=== PATIENT | male | born 1955 | race Caucasian/White ===

== ENCOUNTER 2017-02-16 16:41 | Inpatient (IN) | payer OTHER ==
--- NOTE | ~2017-02-16 | CN ---
Consultation Report [facility] [address] [facility] [place]. [address] NAME: KINDRA DUKES : 51 STATUS : ADM IN PAT#: [id number] AGE: 61 ADM/REG DATE : 02/16/17 MR#: [id number] REPORT SERV DATE: 02/21/17 DICTATED BY: LYLE HUITRON DATE: 02/20/17 REPORT STATUS : Draft TRANSCRIBED BY: MODL DATE: 02/20/17 HEMATOLOGY ONCOLOGY INITIAL CONSULTATION DATE OF CONSULTATION: 02/20/2017 Consult regarding malignant pleural effusion. CONSULTING SERVICE: Pulmonary by Juaquin young PA-C. CHIEF COMPLAINT: Shortness of breath. HISTORY OF PRESENT ILLNESS: Mr. Dukes is a pleasant 61-year-old white gentleman with past medical history of coronary artery disease, status post SD and psoriasis, who presented to [facility] Emergency room for shortness of breath. The shortness of breath started approximately one week ago and has progressively worsened over this period of time. He had a chest x-ray performed that showed a left-sided pleural effusion. A CTA of the chest was then performed showing no evidence of PE with a large left pleural effusion with compressive atelectasis in the entire left lower lobe with no visible central obstructing left lung mass or endobronchial lesion. No lymphadenopathy or distant metastases identified. He had a thoracentesis performed removing 1.4 L of pleural fluid. The fluid was clearly exudative consistent with a malignant pleural effusion. The prelim pathology was metastatic adenocarcinoma of the lung. He had a CT abdomen and pelvis performed showing aortic atherosclerosis without any evidence of malignancy below the diaphragm. He had a PleurX catheter placed late this evening and Oncology was consulted for his newly diagnosed lung cancer. Currently, Mr. Dukes is breathing better, but does still have some shortness of breath. He is experiencing left-sided pleuritic chest pain after his PleurX catheter placement. He denies any chest pain prior to his hospitalization. He denies cough, fevers, anorexia, weight loss, night sweats, headaches, or vision changes. His psoriasis is minimal with a few lesions in bilateral lower extremities, but is not on any therapy and it is currently stable. He has history of heart disease, but denies any symptoms to suggest unstable angina. PAST MEDICAL HISTORY: 1. Coronary artery disease, status post SD in 12/2008. 2. Psoriasis. 3. Hyperlipidemia. PAST SURGICAL HISTORY: L4-L5 spinal fusion. FAMILY HISTORY: The patient's mother and father both from lung cancer. SOCIAL HISTORY: The patient has been to his for 43 years. He is currently retired. He smoked a pack a day for approximately 40 years quitting approximately three Consultation Report [place] [address] [place]. [address] NAME: KINDRA DUKES : 51 STATUS : ADM IN [facility]#: [id number] AGE: 61 ADM/REG DATE : 02/16/17 MR#: [id number] REPORT SERV DATE: 02/21/17 DICTATED BY: LYLE HUITRON DATE: 02/20/17 REPORT STATUS : Draft TRANSCRIBED BY: DAGOBERTO DATE: 02/20/17 years ago. He drinks rare alcohol and denies illicit drug use. ALLERGIES: HAS AN ALLERGY TO PROCAINE. MEDICATIONS: Medications were reviewed from [employer]. REVIEW OF SYSTEMS: A comprehensive review of systems was performed and was negative except for previously mentioned in the HPI with pertinent positives being shortness of breath and left-sided pleuritic chest pain. PHYSICAL EXAMINATION: VITAL SIGNS: Temperature 97.3, blood pressure 124/72, pulse 102, respirations 16, pulse ox 95% on 2 L nasal cannula. GENERAL: A pleasant, well-developed, well-nourished white gentleman in no acute distress. HEENT: Pupils equal, round, and reactive to light. Extraocular movements were intact. Conjunctivae and lids normal. Sclerae anicteric. Moist mucous membranes. Oropharynx clear without exudate, masses, mucositis, or thrush. NECK: Supple. No JVD. Trachea midline. LYMPHATICS: No cervical, supraclavicular, or axillary lymphadenopathy. CHEST: Normal respiratory effort. Decreased breath sounds bilaterally, but decreased effort due to pleuritic chest pain. PleurX catheter in the left chest that has a bandage covering the drain. No crackles or wheezes appreciated. CARDIOVASCULAR: Regular rate and rhythm. No murmurs, rubs, or gallops. ABDOMEN: Soft, nontender, nondistended. Positive bowel sounds. No palpable hepatosplenomegaly. EXTREMITIES: No clubbing, cyanosis, or edema. SKIN: Warm, dry, intact. No rashes or ecchymoses visualized. No palpable nodules. NEUROLOGIC: Awake, alert, oriented. Sensation intact. Strength intact. No focal deficits. PSYCHIATRIC: Awake, alert, and oriented. Appropriate mood and insight. Verbalized understanding of our conversation. LABORATORY DATA: BMP showing a BUN of 19, creatinine of 0.68. CBC showing a white blood cell count 9100, hemoglobin 12.1 g/dL, hematocrit 36.4%, platelets 263,000. ASSESSMENT AND PLAN: Mr. Dukes is a 61-year-old white gentleman with history of psoriasis and coronary artery disease, who presented for shortness of breath. He was found to have a large malignant pleural effusion prompting consultation. 1. Lung cancer: I have reviewed Mr. Dukes's records including notes, laboratory, imaging reports, and pathology reports. I personally viewed his CT images, which shows a large pleural effusion without any other obvious evidence of disease. Prelim pathology shows adenocarcinoma in the left pleural fluid, but are still awaiting final pathology. He has stage IV disease based on his pleural effusion, but still needs completion staging studies including MRI of the brain and PET scan. Treatment can be targeted therapy versus immunotherapy versus chemotherapy. We will send genetic studies including EGFR, Consultation Report [address] [place]. [address] NAME: KINDRA DUKES : 51 STATUS : ADM IN [facility]#: [id number] AGE: 61 ADM/REG DATE : 02/16/17 MR#: [id number] REPORT SERV DATE: 02/21/17 DICTATED BY: LYLE HUITRON DATE: 02/20/17 REPORT STATUS : Draft TRANSCRIBED BY: MODL DATE: 02/20/17 alk, ROS, and PD L1. We will have him follow up in clinic in seven to ten days to follow up on his scans and pathology. We will finalize treatment at that time. 2. Malignant pleural effusion: Status post PleurX catheter placement today. We will drain three times weekly at the outset. 3. Pain: Related to lung reexpansion. Pain medications per the hospitalist. I appreciate the consult and allowing me to take part in Mr. Dukes's care. ROBERT/DAGOBERTO Lyle Huitron MD / [id number] CC: MD Bowen Hinson M.D.
--- NOTE | ~2017-02-16 | EGD ---
EGD REPORT [facility] [address] [address] NAME: KINDRA DUKES : 51 STATUS : ADM IN PAT#: [id number] AGE: 61 ADM/REG DATE : 02/16/17 MR#: [id number] REPORT SERV DATE: 02/20/17 DICTATED BY: EBONY RAMIREZ DATE: 02/20/17 REPORT STATUS : Draft TRANSCRIBED BY: [facility] DATE: 02/20/17 Pulmonology Patient Name: Kindra Dukes Procedure Date: 02/20/2017 5:36 PM Date of : 1955 Attending MD: AGNES RAMIREZ MD Procedure Date No Time: 02/20/2017 Procedure: Indwelling Tunnelled Cuffed Pleural Catheter Placement Indications: MPE Providers: AGNES RAMIREZ MD Referring MD: AGNES RAMIREZ MD Medicines: Intradermal lidocaine 2% with epinephrine 1:100,000 10 mls. See anesthesia record Complications: No immediate complications Procedure: Pre-Anesthesia Assessment: - A History and Physical has been performed. Patient meds and allergies have been reviewed. The risks and benefits of the procedure and the sedation options and risks were discussed with the patient. All questions were answered and informed consent was obtained. Patient identification and proposed procedure were verified prior to the procedure by the physician and the nurse in the pre-procedure area in the procedure room. Mental Status Examination: normal. CV Examination: normal and RRR, no murmurs, no S3 or S4. ASA Grade Assessment: IV - A patient with severe systemic disease that is a constant threat to life. After reviewing the risks and benefits, the patient was deemed in satisfactory condition to undergo the procedure. The anesthesia plan was to use monitored anesthesia care (MAC). Immediately prior to administration of medications, the patient was re-assessed for adequacy to receive sedatives. The heart rate, respiratory rate, oxygen saturations, blood pressure, adequacy of pulmonary ventilation, and response to care were monitored throughout the procedure. The physical status of the patient was re-assessed after the procedure. Findings: After consent was obtained, a time out was performed. The patient was placed in the right lateral decubitus position with the ipsilateral arm above the patient's head. The patient was sedated by anesthesia and ultrasound survey was performed with identification of pleural fluid and surrounding structures including the diaphragm and lung tissue. Ultrasound image interpretation: The depth to the chest wall is approximately 2 cms. The depth of the pocket is approximately 9 cms. EGD REPORT [address] [address] NAME: KINDRA DUKES : 51 STATUS : ADM IN [facility]#: [id number] AGE: 61 ADM/REG DATE : 02/16/17 MR#: [id number] REPORT SERV DATE: 02/20/17 DICTATED BY: EBONY RAMIREZ DATE: 02/20/17 REPORT STATUS : Draft TRANSCRIBED BY: [employer] DATE: 02/20/17 Ultrasound images were permanently documented. The site of entry was marked using ultrasound guidance. After donning cap, mask, sterile gown and gloves, the patient was prepped with chlorhexadine and drapped. 10 ccs of 2% lidocaine with epinephrine 1:100,000 was used to numb the region. A finder needle was then used to locate fluid with aspiration of serosanguinous fluid. An angiocath sheath was inserted followed by guidewire placement. A small incision was performed at insertion site of the guide wire to expose the subcutaneous tissue. Then an additional 20 ccs of 2% lidocaine with epinephrine was used to numb the subcutanous tract and second incision site. A similar second incision was made approximately 5 cm below the initial incision. The pleural catheter was tunnelled in the usual manner. The trocar was inserted over the wire and the pleural catheter placed into pleural space. 2000 ccs of serosanguinous fluid was drained. The catheter was secured using 3.0 silk and a tegaderm dressing was applied. Impression: 2000 ccs of serosanguinous fluid was drained. Left pleurX placement Recommendation: 1. Post-procedure stat portable chest x-ray 2. Home health consultation 3. Case management consultation for discharge planning 4. [facility] Lung nurse navigator consultation 5. Follow up with me in 10 to 14 days to remove stitches and inspect site Attending Participation: I personally performed the entire procedure. AGNES RAMIREZ MD 02/20/2017 5:38 PM This report has been signed electronically. Number of Addenda: 0 Note Initiated On: 02/20/2017 5:36 PM [address] [place] [address]
--- NOTE | ~2017-02-16 | CN ---
Consultation Report [facility] [address] [place]. [address] NAME: KINDRA DUKES : 51 STATUS : ADM IN PAT#: [id number] AGE: 61 ADM/REG DATE : 02/16/17 MR#: [id number] REPORT SERV DATE: 02/18/17 DICTATED BY: JUAQUIN GARCIA DATE: 02/18/17 REPORT STATUS : Draft TRANSCRIBED BY: MODL DATE: 02/18/17 CONSULTATION DATE OF CONSULTATION: 02/18/2017 CHIEF COMPLAINT: Shortness of breath in a patient with a moderate to large left-sided pleural effusion. HISTORY OF PRESENT ILLNESS: Mr. Kindra Dukes is a very pleasant 61-year-old white male with a past medical history significant for previous myocardial infarction, coronary artery stenting, previous tobacco abuse, who presents to [facility]'s Emergency Room with complaints of worsening shortness of breath. It should be noted that Mr. Dukes is not been hospitalized recently and is usually in quite good health. Mr. 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 He usually requires supplemental oxygen. He is on no pulmonary medications. The patient quit smoking approximately three years ago, prior to this time, he smoked approximately a pack a day for 30 years. He describes his exercise tolerance prior to this recent illness as being excellent. Mr. 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 This became progressively worse and culminated in his presentation to [facility]'s Emergency Room. Upon arrival, he was found to be afebrile and normotensive. He did have an oxygen saturation of 88% on room air. Initial blood work revealed a white blood cell count of 11,200. An arterial blood gas was obtained, which demonstrated pH 7.47, PaCO2 of 33, PaO2 57, and a bicarb of 22.9. He did eventually undergo a chest x-ray, which showed a large left pleural effusion. For the aforementioned reasons, he has been referred to the Pulmonary Service for further assessment. Mr. Dukes's main pulmonary complaint today is shortness of breath. This is worse on exertion and relieved by rest. He does have some left-sided pleuritic pain as well. He has had no hemoptysis. He has had no vocal changes. He has had pneumonia in the past. He denies any wheezing today. The patient does have known coronary artery disease and has had a heart attack in the past. He is followed by Dr. Rasmussen for his cardiac needs. He currently denies any murmurs, angina, or palpitations. He denies any orthopnea, paroxysmal nocturnal dyspnea, or edema. In regard to constitutional symptoms, he currently denies fever, chills, nausea, vomiting, chest pain, abdominal pain, or edema. PAST MEDICAL HISTORY: 1. Myocardial infarction. 2. Psoriasis. Consultation Report [address] [place]. [address] NAME: KINDRA DUKES : 51 STATUS : ADM IN [facility]#: [id number] AGE: 61 ADM/REG DATE : 02/16/17 MR#: [id number] REPORT SERV DATE: 02/18/17 DICTATED BY: JUAQUIN GARCIA DATE: 02/18/17 REPORT STATUS : Draft TRANSCRIBED BY: DAGOBERTO DATE: 02/18/17 3. Past tobacco abuse. PAST SURGICAL HISTORY: Back surgery. FAMILY HISTORY: The patient states his mother and father both had COPD as well as diagnosis of lung cancer. SOCIAL HISTORY: The patient is with his of 43 years, currently at bedside. They have children who are in good health. He has worked a variety of jobs in the past, more recently with a [employer]. He denies any known exposures to dust, silica, or asbestos. TOBACCO/ALCOHOL: As previously mentioned, the patient quit smoking approximately three years ago, prior to this time, he smoked a pack a day for a period of 30 years. He denies any recent alcohol or illicit drug use. MEDICATIONS: Aspirin 81 mg, atorvastatin 40 mg, Avodart 0.5 mg, Zetia 10 mg, lisinopril 5 mg, meloxicam 15 mg, and tamsulosin 0.4 mg. ALLERGIES: THE PATIENT HAS KNOWN ALLERGY TO PROCAINE. OF NOTE, THE PATIENT HAS HAD LIDOCAINE IN THE PAST AND HAS HAD NO ISSUES WITH THAT MEDICATION. REVIEW OF SYSTEMS: A complete review of systems was performed with pertinent positives and negatives contained within the body of the HPI. PHYSICAL EXAMINATION: VITAL SIGNS: Blood pressure is 106/66, heart rate 74, T-max is 98.2, respiratory rate is 20, and SpO2 is 94% on 2 L. GENERAL: Mr. Kindra Dukes is a very pleasant 61-year-old white male who is not currently exhibiting any signs of acute distress. SKIN: Skin with appropriate texture and turgor. No rashes, lesions, or ulcers. HEENT: Head, skull is normocephalic, atraumatic. No masses or lesions. Eyes, sclerae anicteric. Extraocular movements are intact. Ears, auricles and tragus without pain to palpation. Nose, bilateral nasal patency. Throat, the patient has complete dentition in good repair. NECK: Neck is supple. No tracheal deviation. THORAX/LUNGS: Thorax is symmetric with equal chest rise. Very diminished breath sounds on the left. Dullness to percussion on the left lower lung field. CARDIOVASCULAR: Regular rate and rhythm. ABDOMEN: Soft. Nondistended, nontender. PERIPHERAL VASCULAR: No edema or varicosities. MUSCULOSKELETAL: Full AROM and PROM in all joints. NEUROLOGIC: Cranial nerves 2 through 12 grossly intact. PSYCHIATRIC: The patient demonstrates good judgment and insight. The patient is alert and Consultation Report [address] [address] NAME: KINDRA DUKES : 51 STATUS : ADM IN [facility]#: [id number] AGE: 61 ADM/REG DATE : 02/16/17 MR#: [id number] REPORT SERV DATE: 02/18/17 DICTATED BY: JUAQUIN GARCIA DATE: 02/18/17 REPORT STATUS : Draft TRANSCRIBED BY: [facility] DATE: 02/18/17 oriented x3. ACCESSORY DATA: Reveals a white blood cell count of 9900, hemoglobin and hematocrit are 13.1 and 40.6, and platelets are 233. PT and INR 15.6 and 1.3. Procalcitonin is negative at 0.05. BNP is slightly elevated at 109.2. Chest x-ray reveals a large left pleural effusion. IMPRESSION: 1. Acute hypoxemic respiratory failure. 2. Rbjyapjw-sg-fjdse left-sided pleural effusion. PLAN: 1. At this time, we will attempt to wean the patient's oxygen as appropriate. 2. In regard to the patient's large left pleural effusion, we will perform a diagnostic as well as a therapeutic thoracentesis at the bedside. The fluid will be sent for the appropriate studies. There is a previously ordered CT of the chest, which we will follow with close attention to better evaluate this after evacuation of the pleural fluid. The aforementioned impression and plan has been discussed with Dr. Merritt, who will follow further recommendations. We thank you for this consult and look forward to participating in the care of. Kindra Dukes. GBS/MODL Juaquin Garcia PA-C / [id number] CC: MD Bowen Hinson M.D.
--- NOTE | ~2017-02-16 | OP ---
Record Of Operation [address] [place]. [address] NAME: KINDRA GUAJARDO : 51 STATUS : ADM IN PAT#: [id number] AGE: 61 ADM/REG DATE : 02/16/17 MR#: [id number] REPORT SERV DATE: 02/18/17 DICTATED BY: JUAQUIN GARCIA DATE: 02/18/17 REPORT STATUS : Draft TRANSCRIBED BY: MODL DATE: 02/18/17 DATE OF PROCEDURE: 02/18/2017 TIME: 1400. PROCEDURE: Ultrasound guided left-sided Thoracentesis INDICATION: Dsbprioa-iy-iuzmc left-sided pleural effusion. PROCEDURE [employer]: Jamar Garcia PA-C. CONSENT: Consent was obtained from the patient prior to the procedure. Diagnostic and therapeutic indications for thoracentesis were discussed as well as risks including life- threatening bleeding, pneumothorax, and even the possible necessity of chest tube placement. Benefits and alternatives were explained at length. Prior to the procedure, imaging studies were reviewed with Dr. Merritt who agreed with the indication to proceed with thoracentesis. Dr. Merritt was present in the room. PROCEDURE SUMMARY: A time out was performed verifying correct patient, procedure, site, and positioning. The patient's left chest was prepped and draped in a sterile manner using chlorhexidine scrub after the appropriate level was percussed and confirmed by ultrasound. U/S images were obtained and placed within the chart. 2% lidocaine with epinephrine was then used to anesthetize the region. A finder needle was then used to aspirate dark serosanguinous pleural fluid. A 10-blade scalpel was then used to make a small incision. The thoracentesis catheter was then threaded into the pleural space without difficulty. The patient had 1400 mL of dark serosanguinous fluid removed. The chest was then re-ultrasound in a sterile fashion which demonstrated some residual fluid remaining. No immediate complications were noted during the procedure. The fluid will be sent for several studies. ESTIMATED BLOOD LOSS: Minimal Please note that the patient is scheduled for a CT of the chest rather than a postprocedural chest x-ray. GBS/MODL Juaquin Garcia PA-C / [id number] CC: Odalis Haque MD Record Of Operation [place] [address] [place]. [address] NAME: KINDRA GUAJARDO : 51 STATUS : ADM IN PAT#: [id number] AGE: 61 ADM/REG DATE : 02/16/17 MR#: [id number] REPORT SERV DATE: 02/18/17 DICTATED BY: JUAQUIN GARCIA DATE: 02/18/17 REPORT STATUS : Draft TRANSCRIBED BY: MODL DATE: 02/18/17 Bowen Larson M.D.
--- NOTE | ~2017-02-16 | DS ---
Discharge Summary [facility] [place] [id number] [place]. [address] NAME: KINDRA GUAJARDO : 51 STATUS : DIS IN PAT#: [id number] AGE: 61 ADM/REG DATE : 02/16/17 MR#: [id number] REPORT SERV DATE: 02/22/17 DICTATED BY: KHUSHI MANUEL DATE: 02/21/17 REPORT STATUS : Draft TRANSCRIBED BY: DAGOBERTO DATE: 02/21/17 ADMISSION DATE: 02/16/2017 DISCHARGE DATE: 02/21/2017 DISCHARGE DIAGNOSES: 1. Malignant pleural effusion, probable non-small cell lung cancer, final pathology adenocarcinoma. 2. Acute hypoxic respiratory failure secondary to above. 3. Acute on chronic systolic/diastolic heart failure contributing to respiratory failure. 4. Coronary artery disease. 5. BPH. 6. Psoriasis. DISCHARGE MEDICATIONS: Include: 1. Flomax 0.4 mg p.o. b.i.d. 2. Spiriva 18 mcg capsule inhaled daily. 3. [place] 5/325 p.o. q.6 hours p.r.n. 4. Lasix 20 mg p.o. daily. 5. Nitroglycerin 0.4 sublingual p.r.n. chest pain. 6. Aspirin 81 mg p.o. daily. 7. Mobic 15 mg daily p.r.n. 8. Lipitor 40 mg p.o. at bedtime. 9. Avodart 0.5 mg daily. 10.Zetia 10 mg p.o. at bedtime. 11.Prinivil 5 mg at bedtime. DISPOSITION AND FOLLOWUP: Patient medically stable for discharge. Followup with Pulmonary and Oncology as directed. Patient to have PET scan and MRI of the head done as an outpatient. Follow with primary care physician in one week. HISTORY AND PHYSICAL: Per initial assessment. DISCHARGE VITALS: Temperature 96.9, heart rate 89, blood pressure 115/74, respiratory rate 18, and O2 saturation 94 on 2 L. DISCHARGE LABS: WBC 9.1, hemoglobin 12.1, hematocrit 36.4, and platelets 263. Sodium 139, potassium 4.5, chloride 103, bicarb 28, BUN 17, creatinine 0.64, and calcium 8.6. HOSPITAL COURSE: This is a 61-year-old man with past medical history of coronary artery disease who comes in due to shortness of breath. The patient was found to have a large pleural effusion and hypoxic respiratory failure secondary to above. Pulmonary was consulted, further details per Pulmonary note. Thoracentesis was done with 1.4 L out. Studies were reviewed, pathology adenocarcinoma, probable non-small cell lung cancer. CT of the abdomen and pelvis was done without any acute process identified. Echo was done which showed left ventricular function moderately impaired estimated at 40% to 45%, mild left ventricular diastolic dysfunction, right ventricular systolic function intact, no Discharge Summary [address] [address] NAME: KINDRA GUAJARDO : 51 STATUS : DIS IN PAT#: [id number] AGE: 61 ADM/REG DATE : 02/16/17 MR#: [id number] REPORT SERV DATE: 02/22/17 DICTATED BY: KHUSHI MANUEL DATE: 02/21/17 REPORT STATUS : Draft TRANSCRIBED BY: MODL DATE: 02/21/17 significant valvular dysfunction. No pleural effusion noted per echo. No pericardial effusion. The patient was placed on IV diuretics. Will be discharged on Lasix 20 mg p.o. daily. Discharged the patient on oxygen to maintain saturation above 89%. Question of COPD undiagnosed, patient will be placed on Spiriva at discharge by Pulmonary. The patient also had done without any complications. Patient medically stable for discharge. Oncology did see patient and will follow as directed. We will have MRI and PET scan done as an outpatient. Follow up with primary care physician in one week. Total time for discharge planning, 35 minutes. DICTATED BY: MD ELLIOT Hinson/DAGOBERTO Odalis Haque MD / [id number] CC: MD Bowen Hinson M.D.
--- NOTE | ~2017-02-16 | HP ---
History And Physical [place] [id number] [facility] [place]. . [address] NAME: KINDRA GUAJARDO : 51 STATUS : ADM IN [facility]#: [id number] AGE: 61 ADM/REG DATE : 02/16/17 MR#: [id number] REPORT SERV DATE: 02/17/17 DICTATED BY: KATERINA FRANCOIS DATE: 02/17/17 REPORT STATUS : Draft TRANSCRIBED BY: MODL DATE: 02/17/17 DATE OF ADMISSION: 02/16/2017 CHIEF COMPLAINT: A 61-year-old male presenting with shortness of breath and hypoxia. HISTORY OF PRESENT ILLNESS: The patient's history was obtained through careful interview with the patient and coupled with review of [facility] medical records. For a week or possibly a week and a half, he has noticed some increasing shortness of breath, new onset. He describes the shortness of breath as dyspnea on exertion. He has had chest pain felt in the left side of his chest, a pressure-like quality and a twinge, 6/10 severity, exacerbated by coughing. He describes his cough as productive of "a little bit of junk" but without much color. No fevers or chills. No lower extremity edema. No abdominal pain. No nausea or vomiting. No diarrhea. No night sweats. No light headedness. No weight loss. REVIEW OF SYSTEMS: Otherwise, a 14-point review of systems was obtained and was negative. PAST MEDICAL HISTORY: 1. Coronary artery disease, status post RCA stent placement, 2008. Taken off Plavix in 2016, on aspirin only. 2. Pneumonia, has had a total of 3 episodes through the years. 3. Psoriasis. 4. Benign prostatic hypertrophy. PAST SURGICAL HISTORY: Lumbar spine surgery in 2016. ALLERGIES: TO PROCAINE. SOCIAL HISTORY: Quit smoking 3-1/2 years ago. Drinks occasional beer. 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 He is . Has children, three grandchildren. His grandchildren are all very young; a 3-1/2- year old child, a 3-month-old, and a 2-week-old. FAMILY HISTORY: Diabetes and stroke. CURRENT MEDICATIONS: Include aspirin 81 mg p.o. daily, Lipitor 40 mg p.o. daily, Avodart 0.5 mg p.o. daily, Zetia 10 mg p.o. daily, lisinopril 5 mg p.o. daily, Mobic 15 mg p.o. daily, nitroglycerin, and Flomax 0.4 mg p.o. b.i.d. PHYSICAL EXAMINATION: History And Physical [place] [address] [address] . [address] NAME: KINDRA GUAJARDO : 51 STATUS : ADM IN [facility]#: [id number] AGE: 61 ADM/REG DATE : 02/16/17 MR#: [id number] REPORT SERV DATE: 02/17/17 DICTATED BY: KATERINA FRANCOIS DATE: 02/17/17 REPORT STATUS : Draft TRANSCRIBED BY: DAGOBERTO DATE: 02/17/17 VITAL SIGNS: Temperature 98.5, pulse 105, blood pressure 122/71, respiratory rate 33, and O2 saturation 88% on room air. GENERAL: An ill-appearing male with evidence of some distress secondary to shortness of breath and cough. HEENT: Pupils equal, round, and reactive to light. No conjunctival pallor. No scleral icterus. Nares are patent. Oropharynx is clear of obstruction. Moist mucous membranes. NECK: Trachea midline. No thyromegaly. LYMPH: No cervical lymphadenopathy. No supraclavicular lymphadenopathy. RESPIRATORY: The patient does have absent breath sounds in the left lung. He has dullness to percussion that extends to about usp up the lung field on the left side. I do not appreciate any wheezes. No rales. No rhonchi. The patient has a labored respiratory effort. CARDIOVASCULAR: Tachycardic, regular rhythm. No murmurs, rubs, or gallops. No extremity edema is appreciated. ABDOMEN: Soft, nontender, and nondistended. Normal bowel sounds auscultated throughout. No hepatosplenomegaly. DERMATOLOGICAL: Warm and dry extremities. No pallor. No cyanosis. PSYCHIATRIC: Normal affect. Good mood. Alert and oriented x3. LABORATORY DATA: White blood cell count 11.2, hemoglobin 14, hematocrit 43, platelets 231, sodium 141, potassium 4.3, chloride 107, bicarb 27, BUN 13, creatinine 0.76, glucose 119, lactic acid 1.0, and INR 1.2. Troponin negative. Liver enzymes within normal limits. ABG demonstrates a pH of 7.47, a PaCO2 of 33, a PaO2 of 57, and a bicarb of 23 on room air. STUDIES: 1. Chest x-ray, by my own evaluation, shows a large left pleural effusion. 2. EKG, by my own evaluation, shows sinus tachycardia. ASSESSMENT AND PLAN: 1. Large left pleural effusion, obtain an ultrasound guided thoracentesis in the morning of 02/17/2017 for diagnostic and therapeutic purposes. 2. Hypoxic respiratory failure, provide supportive care. 3. Coronary artery disease, on aspirin. 4. Psoriasis. KPL/MODL Katerina Francois M.D. / [id number] CC: Jazmine Navarro M.D. History And Physical [address] [address] NAME: KINDRA GUAJARDO : 51 STATUS : ADM IN [facility]#: [id number] AGE: 61 ADM/REG DATE : 02/16/17 MR#: [id number] REPORT SERV DATE: 02/17/17 DICTATED BY: KATERINA FRANCOIS DATE: 02/17/17 REPORT STATUS : Draft TRANSCRIBED BY: MODDahiana DATE: 02/17/17 Logan Rasmussen M.D.
[~2017-02-16 16:41] MED LIST: ASABAYER PO; FLOMAX4 PO; LEVAQUIN5T PO; LIPITOR40 PO; MOBIC15 MG PO; NO MEDS; PLAVIX PO; PRIN5 PO; ZETIA PO
[2017-02-16 17:10] LABS: BASOPHILS 0.3 %; BASOPHILS ABSOLUTE 0.03 10/3/uL (0.0-0.16); EOSINOPHILS 1.4 %; EOSINOPHILS ABSOLUTE 0.16 10/3/uL (0.0-0.53); HEMOGLOBIN 14.2 g/dL (13.6-17.8); IMMATURE GRANULOCYTES 0.3 %; IMMATURE GRANULOCYTES ABSOLUTE 0.03 10/3/uL (0.0-0.11); LYMPHOCYTES 5.5 %; LYMPHOCYTES ABSOLUTE 0.61 10/3/uL (0.67-4.30); MEAN CORPUSCULAR HEMOGLOB 28.2 pg (26.0-34.0); MEAN CORPUSCULAR VOLUME 86.3 fL (80-100); MEAN PLATELET VOLUME 9.1 fL (9.2-13.0); MONOCYTES 8.8 %; MONOCYTES ABSOLUTE 0.99 10/3/uL (0.21-1.20); NEUTROPHILS 83.7 %; NEUTROPHILS ABSOLUTE 9.37 10/3/uL (2.02-8.40); PLATELET COUNT 231 10/3/uL (150-400); RBC DISTRIBUTION WIDTH 13.5 % (12.0-16.0); RED CELL COUNT 5.03 10/6/uL (4.7-6.1); WHITE BLOOD CELLS 11.2 10/3/uL (4.5-10.5)
[2017-02-16 17:13] LABS: HEMATOCRIT 43.4 % (40.0-51.0); MANUAL DIFF NO %; MEAN CORPUS HGB CONC 32.7 g/dL (32.0-36.0)
[2017-02-16 17:19] LABS: INTERNATIONAL NORMAL RATI 1.2 UNITS (-); PROTIME (NOT ORD) 14.9 SEC (12.0-14.5)
[2017-02-16 17:20] LABS: PARTIAL THROMBO TIME 32.2 SEC (22.5-37.2)
[2017-02-16 17:27] LABS: BUN (BLOOD UREA NITROGEN) 13 MG/DL (6-23); CHEST PAIN PROFILE TAT 0 Hrs 23 Mins; CHLORIDE, SERUM 107 MMOL/L (96-112); CO2 (CARBON DIOXIDE) 27 MMOL/L (24-34); CREATININE 0.76 MG/DL (0.70-1.30); GFR AFRICAN AMERICAN 113 ML/MIN (>=60); GFR NON AFRICAN AMERICAN 97 ML/MIN (>=60); GLUCOSE, SERUM 119 MG/DL (60-99); POTASSIUM, SERUM 4.3 MMOL/L (3.5-5.3); SODIUM, SERUM 141 MMOL/L (135-148); TROPONIN I <0.02 NG/ML (<0.05)
[2017-02-16] MEDS ORDERED: AVODART PO (17:39)
[2017-02-16] MEDS ORDERED: LIPITOR40 PO (17:39)
[2017-02-16] MEDS ORDERED: MOBIC15 MG PO (17:40)
[2017-02-16] MEDS ORDERED: FLOMAX4 PO (17:40)
[2017-02-16] MEDS ORDERED: ZETIA PO (17:40)
[2017-02-16] MEDS ORDERED: PRIN5 PO (17:40)
[2017-02-16] MEDS ORDERED: ASAB PO (17:41)
[2017-02-16] MEDS ORDERED: NITROSTAT0.4 MG SL (17:41)
[2017-02-16 17:44] LABS: ALLENS TEST Pos; HCO3 (ACTUAL BICARBONATE) 22.9 MEQ/L (23-27); INSTRUMENT SERIAL # 8087; OPERATOR ID 14335; PCO2 (CO2 TENSION) 33 MMHG (35-45); PO2 (O2 TENSION) 57 MMHG (79-93); SAMPLE Arterial; pH 7.47 (7.37-7.43)
[2017-02-16 18:34] LABS: DIRECT BILIRUBIN 0.3 MG/DL (0.0-0.4); INDIRECT BILIRUBIN(NOT ORDER) 0.6 MG/DL (0.1-0.9); TOTAL BILIRUBIN 0.9 MG/DL (0-1.2); TOTAL PROTEIN 6.8 G/DL (6.0-8.5)
[2017-02-16 18:35] LABS: ALBUMIN 3.1 G/DL (3.5-5.0)
[2017-02-17 05:05] LABS: BASOPHILS 0.3 %; BASOPHILS ABSOLUTE 0.03 10/3/uL (0.0-0.16); EOSINOPHILS 1.9 %; EOSINOPHILS ABSOLUTE 0.19 10/3/uL (0.0-0.53); HEMATOCRIT 40.9 % (40.0-51.0); HEMOGLOBIN 13.5 g/dL (13.6-17.8); IMMATURE GRANULOCYTES 0.2 %; IMMATURE GRANULOCYTES ABSOLUTE 0.02 10/3/uL (0.0-0.11); LYMPHOCYTES 7.4 %; LYMPHOCYTES ABSOLUTE 0.72 10/3/uL (0.67-4.30); MANUAL DIFF NO %; MEAN CORPUSCULAR HEMOGLOB 28.4 pg (26.0-34.0); MEAN CORPUSCULAR VOLUME 85.9 fL (80-100); MEAN PLATELET VOLUME 9.5 fL (9.2-13.0); MONOCYTES 11.3 %; NEUTROPHILS 78.9 %; PLATELET COUNT 232 10/3/uL (150-400); RBC DISTRIBUTION WIDTH 13.6 % (12.0-16.0); RED CELL COUNT 4.76 10/6/uL (4.7-6.1); WHITE BLOOD CELLS 9.8 10/3/uL (4.5-10.5)
[2017-02-17 05:13] LABS: INTERNATIONAL NORMAL RATI 1.2 UNITS (-); PARTIAL THROMBO TIME 33.2 SEC (22.5-37.2); PROTIME (NOT ORD) 15.5 SEC (12.0-14.5)
[2017-02-17 05:29] LABS: ALBUMIN 2.7 G/DL (3.5-5.0); ALKALINE PHOSPHATASE 114 U/L (45-117); BUN (BLOOD UREA NITROGEN) 14 MG/DL (6-23); CALCIUM, SERUM 8.6 MG/DL (8.5-10.4); CHLORIDE, SERUM 107 MMOL/L (96-112); CO2 (CARBON DIOXIDE) 24 MMOL/L (24-34); CPK 117 U/L (0-200); CREATININE 0.66 MG/DL (0.70-1.30); GFR AFRICAN AMERICAN 119 ML/MIN (>=60); GFR NON AFRICAN AMERICAN 103 ML/MIN (>=60); GLUCOSE, SERUM 99 MG/DL (60-99); SGOT(AST) 13 U/L (5-40); SGPT(ALT) 13 U/L (5-65); SODIUM, SERUM 141 MMOL/L (135-148); TOTAL PROTEIN 6.4 G/DL (6.0-8.5); TROPONIN I <0.02 NG/ML (<0.05)
[2017-02-17 05:30] LABS: A/G RATIO 0.7 (0.7-1.9); CK-MB 1.3 NG/ML; GLOBULIN 3.7 G/DL (2.5-4.1); ULTRASENSITIVE TSH 0.635 MCIU/ML (0.358-3.740)
[2017-02-17 05:44] LABS: PROCALCITONIN 0.05 ng/mL (<0.5)
[2017-02-18 05:59] LABS: BASOPHILS 0.3 %; BASOPHILS ABSOLUTE 0.03 10/3/uL (0.0-0.16); EOSINOPHILS 2.5 %; EOSINOPHILS ABSOLUTE 0.25 10/3/uL (0.0-0.53); HEMATOCRIT 40.6 % (40.0-51.0); HEMOGLOBIN 13.1 g/dL (13.6-17.8); IMMATURE GRANULOCYTES 0.3 %; IMMATURE GRANULOCYTES ABSOLUTE 0.03 10/3/uL (0.0-0.11); LYMPHOCYTES 10.1 %; MEAN CORPUS HGB CONC 32.3 g/dL (32.0-36.0); MEAN CORPUSCULAR HEMOGLOB 27.8 pg (26.0-34.0); MEAN CORPUSCULAR VOLUME 86.2 fL (80-100); MEAN PLATELET VOLUME 9.4 fL (9.2-13.0); MONOCYTES 9.9 %; MONOCYTES ABSOLUTE 0.98 10/3/uL (0.21-1.20); NEUTROPHILS 76.9 %; NEUTROPHILS ABSOLUTE 7.57 10/3/uL (2.02-8.40); PLATELET COUNT 233 10/3/uL (150-400); RBC DISTRIBUTION WIDTH 13.6 % (12.0-16.0); RED CELL COUNT 4.71 10/6/uL (4.7-6.1); WHITE BLOOD CELLS 9.9 10/3/uL (4.5-10.5)
[2017-02-18 06:00] LABS: MANUAL DIFF NO %
[2017-02-18 06:06] LABS: INTERNATIONAL NORMAL RATI 1.3 UNITS (-); PARTIAL THROMBO TIME 32.9 SEC (22.5-37.2); PROTIME (NOT ORD) 15.6 SEC (12.0-14.5)
[2017-02-18 06:12] LABS: BUN (BLOOD UREA NITROGEN) 23 MG/DL (6-23); CALCIUM, SERUM 8.7 MG/DL (8.5-10.4); CHLORIDE, SERUM 106 MMOL/L (96-112); CO2 (CARBON DIOXIDE) 24 MMOL/L (24-34); GFR AFRICAN AMERICAN 110 ML/MIN (>=60); GFR NON AFRICAN AMERICAN 95 ML/MIN (>=60); GLUCOSE, SERUM 98 MG/DL (60-99); SODIUM, SERUM 139 MMOL/L (135-148)
[2017-02-18 12:11] LABS: TOTAL PROTEIN 6.4 G/DL (6.0-8.5)
[2017-02-18 15:27] LABS: BODY FLUID RBC (NOT ORD) 328725 /MM3
[2017-02-18 15:28] LABS: BF TOTAL CELL CT (NOT ORD 17899 /MM3
[2017-02-18 15:43] LABS: LDH BODY FLUID (NOT ORD) 972 U/L; PROTEIN BODY FLUID 4.6 G/DL
[2017-02-18 15:46] LABS: GLUCOSE BODY FL (NOT ORD) < 1 MG/DL
[2017-02-18 16:25] LABS: BD FL LYMPH (NOT ORD) 3 %; BD FL SOURCE (NOT ORD) PLEURAL FLUID; BF BASO (NOT OF) 0 %; BF LARGE MONONUCLEAR 13 %; BODY FLUID EOS (NOT ORD) 0 %; BODY FLUID SEG (NOT ORD) 84 %
[2017-02-19 05:11] LABS: BASOPHILS 0.3 %; BASOPHILS ABSOLUTE 0.03 10/3/uL (0.0-0.16); EOSINOPHILS 2.7 %; EOSINOPHILS ABSOLUTE 0.26 10/3/uL (0.0-0.53); HEMOGLOBIN 12.2 g/dL (13.6-17.8); IMMATURE GRANULOCYTES 0.3 %; IMMATURE GRANULOCYTES ABSOLUTE 0.03 10/3/uL (0.0-0.11); LYMPHOCYTES 7.2 %; LYMPHOCYTES ABSOLUTE 0.69 10/3/uL (0.67-4.30); MEAN CORPUSCULAR HEMOGLOB 28.2 pg (26.0-34.0); MEAN CORPUSCULAR VOLUME 85.5 fL (80-100); MEAN PLATELET VOLUME 9.4 fL (9.2-13.0); MONOCYTES 11.4 %; NEUTROPHILS 78.1 %; NEUTROPHILS ABSOLUTE 7.51 10/3/uL (2.02-8.40); PLATELET COUNT 223 10/3/uL (150-400); RBC DISTRIBUTION WIDTH 13.4 % (12.0-16.0); RED CELL COUNT 4.33 10/6/uL (4.7-6.1); WHITE BLOOD CELLS 9.6 10/3/uL (4.5-10.5)
[2017-02-19 05:12] LABS: MANUAL DIFF NO %
[2017-02-19 05:35] LABS: BUN (BLOOD UREA NITROGEN) 25 MG/DL (6-23); CALCIUM, SERUM 8.8 MG/DL (8.5-10.4); CHLORIDE, SERUM 104 MMOL/L (96-112); CO2 (CARBON DIOXIDE) 27 MMOL/L (24-34); CREATININE 0.79 MG/DL (0.70-1.30); GFR AFRICAN AMERICAN 111 ML/MIN (>=60); GFR NON AFRICAN AMERICAN 96 ML/MIN (>=60); GLUCOSE, SERUM 103 MG/DL (60-99); POTASSIUM, SERUM 4.1 MMOL/L (3.5-5.3); SODIUM, SERUM 138 MMOL/L (135-148)
[2017-02-20 05:38] LABS: BASOPHILS 0.2 %; BASOPHILS ABSOLUTE 0.02 10/3/uL (0.0-0.16); EOSINOPHILS 2.7 %; EOSINOPHILS ABSOLUTE 0.25 10/3/uL (0.0-0.53); HEMATOCRIT 36.4 % (40.0-51.0); HEMOGLOBIN 12.1 g/dL (13.6-17.8); IMMATURE GRANULOCYTES 0.1 %; IMMATURE GRANULOCYTES ABSOLUTE 0.01 10/3/uL (0.0-0.11); LYMPHOCYTES 8.9 %; LYMPHOCYTES ABSOLUTE 0.81 10/3/uL (0.67-4.30); MEAN CORPUS HGB CONC 33.2 g/dL (32.0-36.0); MEAN CORPUSCULAR HEMOGLOB 28.1 pg (26.0-34.0); MEAN CORPUSCULAR VOLUME 84.5 fL (80-100); MEAN PLATELET VOLUME 9.7 fL (9.2-13.0); MONOCYTES 6.3 %; MONOCYTES ABSOLUTE 0.57 10/3/uL (0.21-1.20); NEUTROPHILS 81.8 %; NEUTROPHILS ABSOLUTE 7.45 10/3/uL (2.02-8.40); PLATELET COUNT 263 10/3/uL (150-400); RBC DISTRIBUTION WIDTH 13.4 % (12.0-16.0); RED CELL COUNT 4.31 10/6/uL (4.7-6.1); WHITE BLOOD CELLS 9.1 10/3/uL (4.5-10.5)
[2017-02-20 05:39] LABS: MANUAL DIFF NO %
[2017-02-20 05:46] LABS: BUN (BLOOD UREA NITROGEN) 19 MG/DL (6-23); CALCIUM, SERUM 8.6 MG/DL (8.5-10.4); CHLORIDE, SERUM 103 MMOL/L (96-112); CO2 (CARBON DIOXIDE) 29 MMOL/L (24-34); CREATININE 0.68 MG/DL (0.70-1.30); GFR AFRICAN AMERICAN 118 ML/MIN (>=60); GFR NON AFRICAN AMERICAN 102 ML/MIN (>=60); GLUCOSE, SERUM 97 MG/DL (60-99); POTASSIUM, SERUM 4.2 MMOL/L (3.5-5.3); SODIUM, SERUM 138 MMOL/L (135-148)
[2017-02-21 05:21] LABS: BUN (BLOOD UREA NITROGEN) 17 MG/DL (6-23); CALCIUM, SERUM 8.6 MG/DL (8.5-10.4); CHLORIDE, SERUM 103 MMOL/L (96-112); CO2 (CARBON DIOXIDE) 28 MMOL/L (24-34); CREATININE 0.64 MG/DL (0.70-1.30); GFR AFRICAN AMERICAN 121 ML/MIN (>=60); GFR NON AFRICAN AMERICAN 104 ML/MIN (>=60); GLUCOSE, SERUM 98 MG/DL (60-99); POTASSIUM, SERUM 4.5 MMOL/L (3.5-5.3); SODIUM, SERUM 139 MMOL/L (135-148)
[2017-02-21] MEDS ORDERED: SPIRIVA INH (13:11)
[2017-02-21] MEDS ORDERED: SPIRIVA RESPIMAT INH (13:12)
[2017-02-21] MEDS ORDERED: PROAIR HFA INH (13:17)
[2017-02-21] MEDS ORDERED: NORCO1 TA1 PO (13:18)
[2017-02-21] MEDS ORDERED: L20 PO (13:18)
[2017-05-16] MEDS ORDERED: FOLIC PO (12:18)
== END 2017-02-21 16:23 | disposition home health service (06) | DRG 180 ==
LOC: ER 16:41 → 7NO 21:50
PROVIDERS: Family Medicine; Hospitalist; Internal Medicine; Physician Assistant Medical; Specialist
PROC: 0W9B3ZX Drainage of Left Pleural Cavity, Percutaneous Approach, Diagnostic (ICD-10-PCS; 2017-02-18)
PROC: 0B9P30Z Drainage of Left Pleura with Drainage Device, Percutaneous Approach (ICD-10-PCS; principal; 2017-02-20 17:00)
DX: C34.92 Malignant neoplasm of unspecified part of left bronchus or lung (principal); J96.01 Acute respiratory failure with hypoxia; I50.43 Acute on chronic combined systolic (congestive) and diastolic (congestive) heart failure; J91.0 Malignant pleural effusion; I25.10 Atherosclerotic heart disease of native coronary artery without angina pectoris; I25.2 Old myocardial infarction; N40.0 Benign prostatic hyperplasia without lower urinary tract symptoms; I70.0 Atherosclerosis of aorta; L40.9 Psoriasis, unspecified; J44.9 Chronic obstructive pulmonary disease, unspecified; Z95.5 Presence of coronary angioplasty implant and graft; Z87.01 Personal history of pneumonia (recurrent); Z79.82 Long term (current) use of aspirin; Z87.891 Personal history of nicotine dependence; Z83.3 Family history of diabetes mellitus; Z82.3 Family history of stroke
CPT/HCPCS: 36600; 71010; 71020; 71275; 74177; 80048; 80053; 80076; 82550; 82553; 82805; 82945; 83605; 83615; 83735; 83880; 84145; 84155; 84157; 84443; 84484; 85014; 85025; 85610; 85730; 87015; 87040; 87070; 87102; 87116; 87205; 88112; 88305; 88344; 89051; 93005; 93306; 99285; A9270-GY; C1729; J1940; Q9967